=== PATIENT | female | born 1940 | race Caucasian/White ===

== ENCOUNTER → 2018-11-17 | Outpatient (CLI) | payer MEDICARE ==
[~2018-11-17] MED LIST: CALCIUM 600 +1 EAC1 PO; CLOBETASOL EMOL15 GM TOP; CLONAZEPAM 1 MG1 M1 PO; CYMBALTA60 MG PO; FISH OIL 1,001000 M2 PO; GLUCOSAMINE CO1 EACH PO; HYDROXYCHLOROQ200 M1 PO; MEDROLDOSEPACK PO; MOBIC15 MG PO; NORCO 10-325 T1 EACH PO; PRILOSEC 10MG C10 MG PO; PROPRANOLOL 1010 MG PO; VENTOLIN HFA 1818 GM INH; VOLTAREN 50MG T50 MG PO; WELLBUTRIN 100100 MG PO; WOMEN'S DAILY1 EACH PO; ZYRTEC10 M5 PO
== END ==
LOC: M.RAD 13:16
DX: Z12.31 Encounter for screening mammogram for malignant neoplasm of breast (principal)